=== PATIENT | male | born 1960 | race Caucasian/White ===

== ENCOUNTER 2019-08-31 02:26 | Observation (INO) | payer OTHER ==
[~2019-08-31] VITALS: Ht 182.9 cm; Wt 81.6 kg
[2019-08-31 02:36] VITALS: Ht 182.9 cm; Wt 81.6 kg
[2019-08-31 02:52] LABS: BASOPHIL % 0.2 % (0-2); PLATELET COUNT 244 x10^3mcL (130-400); RED CELL DISTRIBUTION WIDTH 14.5 % (11.5-14.5)
[2019-08-31 03:00] LABS: CALCIUM 7.7 mg/dL (8.5-10.1); CARBON DIOXIDE 25.7 mmol/L (21-32); CHLORIDE SERUM 101 mmol/L (98-107); CREATININE SERUM 1.3 mg/dL (0.7-1.3); GFR1 60 mL/min; GLUCOSE SERUM 162 mg/dL (74-106); POTASSIUM SERUM 4.4 mmol/L (3.5-5.1); SODIUM SERUM 138 mmol/L (136-145)
[2019-08-31 03:05] LABS: ALBUMIN 2.8 g/dL (3.4-5.0); ALKALINE PHOSPHATASE 80 U/L (46-116); ALT/SGPT 39 U/L (16-63); AST/SGOT 85 U/L (15-37); BILIRUBIN TOTAL 0.76 mg/dL (0.20-1.00); TOTAL PROTEIN, SERUM 6.5 g/dL (6.4-8.2)
[2019-08-31] MEDS ORDERED: CORE25 PO (03:14)
[2019-08-31] MEDS ORDERED: PAXIL10 MG PO ×2 (03:17→03:31)
[2019-08-31] MEDS ORDERED: LISINOPRIL-HYDR1 TA3 PO (03:19)
[2019-08-31 03:47] LABS: UA SPECIFIC GRAVITY >=1.030 (1.005-1.035); microscopic required? YES; urine erythrocyte NEGATIVE (NEGATIVE)
[2019-08-31 04:04] LABS: AMPHETAMINE QUAL UR NONE DETECTED (See below)
[2019-08-31 05:33] VITALS: BP 148/81
[2019-08-31 08:01] VITALS: BP 164/87
[2019-08-31 12:00] VITALS: BP 138/80
[2019-08-31] MEDS ORDERED: ATI2I IV (14:36)
[2019-08-31] MEDS ORDERED: KEP500 PO (14:36)
[2019-08-31 21:27] VITALS: BP 145/104
[2019-09-01 05:37] VITALS: BP 137/90
[2019-09-01 07:05] VITALS: BP 138/86
[2019-09-01 11:28] VITALS: BP 125/67
== END 2019-09-01 14:25 | disposition short-term general hospital (02) ==
LOC: ED 02:26 → DU 03:40 → EDBEDREQ 03:40 → DU 03:40
PROVIDERS: Emergency Medicine; ADMIT Internal Medicine; ATTEND Internal Medicine
DX: R56.9 Unspecified convulsions (principal); I10 Essential (primary) hypertension; F10.129 Alcohol abuse with intoxication, unspecified; R42 Dizziness and giddiness; I48.91 Unspecified atrial fibrillation; Z79.01 Long term (current) use of anticoagulants; Z79.82 Long term (current) use of aspirin
CPT/HCPCS: G0378; G0480; J2060; J3411; J3475; J3490; J7030; J7042